=== PATIENT | male | born 1980 | race Caucasian/White ===

== ENCOUNTER 2018-03-12 21:17 | Emergency (ER) | payer OTHER ==
[2018-03-12 21:24] VITALS: BP 106/69; PULSE 68; TEMP 97; BMI 25.7
[2018-03-12] MEDS ORDERED: ACETAMINOPHEN 500 MG TABLET (FP) PO ONE (21:49)
[2018-03-12] MEDS ORDERED: ACETAMINOPHEN 500 MG TABLET (FP) ONE (22:00)
--- NOTE | 2018-03-12 22:44 | PDOC ---
History of Present Illness - General Chief Complaint: Cold Symptoms Stated Complaint: SICK Time Seen by Provider: 03/12/18 21:44 - History of Present Illness Initial Comments: 03/12/18 22:42 37-year-old male with cough fever and body aches 2 days. Past History - Past Medical History Allergies/Adverse Reactions: Allergies Allergy/AdvReac Type Severity Reaction Status Date / Time No Known Allergies Allergy Verified 09/05/17 15:09 Home Medications: Ambulatory Orders Oseltamivir Phosphate [Tamiflu] 75 mg PO BID #10 capsule 03/12/18 COPD: No - Immunization History Immunization Up to Date: Yes - Suicide/Smoking/Psychosocial Hx Smoking History: Never smoked Review of Systems - Review of Systems Constitutional: Yes: Chills, Fever, Night Sweats Respiratory: Yes: Cough *Physical Exam - Vital Signs Last Vital Signs Temp Pulse Resp BP Pulse Ox 97 F L 68 18 106/69 97 03/12/18 21:22 03/12/18 21:22 03/12/18 21:22 03/12/18 21:22 03/12/18 21:22 - Physical Exam Comments: 03/12/18 22:42 HEAD: NC/AT EYES: Conjuntiva clear Ears: Canals and TM's normal NOSE: No d/c THROAT: Moist mucous membrances, oral pharanx clear, uvula midline NECK: Supple without adenopathy CARDIAC: S1 S2 LUNGS: CTA Full and Equal breath sounds ABDOMEN: Soft NT ND MS: Full ROM in all joints without edema NEUROLOGIC: No gross sensory or motor deficits, NVID SKIN: Normal color and temperature no lesions or rashes Moderate Sedation - Procedure Monitoring Vital Signs: Procedure Monitoring Vital Signs Temperature 97 F L 03/12/18 21:22 Pulse Rate 68 03/12/18 21:22 Respiratory Rate 18 03/12/18 21:22 Blood Pressure 106/69 03/12/18 21:22 O2 Sat by Pulse Oximetry (%) 97 03/12/18 21:22 ED Treatment Course - Medications Given in the ED: ED Medications Discontinued Medications Generic Name Dose Route Start Last Admin Trade Name Freq PRN Reason Stop Dose Admin Acetaminophen 1,000 mg 03/12/18 21:49 03/12/18 22:02 Tylenol - PO 03/12/18 21:50 1,000 mg ONCE ONE Administration *DC/Admit/Observation/Transfer Diagnosis at time of Disposition: Influenza A - Discharge Dispostion Disposition: HOME Condition at time of disposition: Stable Decision to Admit order: No - Referrals Referrals: Archana Issa MD [Primary Care Provider] - - Patient Instructions Printed Discharge Instructions: Influenza Additional Instructions: Please take Tamiflu as directed. Return to the emergency room should symptoms worsen or go unresolved. Follow-up with your primary care physician in one to 2 days for further evaluation and treatment options. Tylenol and Motrin as directed for pain. And fever. - Post Discharge Activity
== END 2018-03-12 22:46 | disposition home or self-care (01) ==
LOC: JERFT 21:17
DX: J09.X2 Influenza due to identified novel influenza A virus with other respiratory manifestations (principal)
CPT/HCPCS: 87804; 99281-25

== ENCOUNTER 2019-09-25 20:55 | Emergency (ER) | payer BC, OTHER ==
[2019-09-25 21:07] VITALS: BP 117/70; PULSE 56; TEMP 97.9; BMI 25.7
[2019-09-25] MEDS ORDERED: TETRACAINE 0.5% OPHTH SOLN 2 ML BOTTLE ONE (21:41)
[2019-09-25] MEDS ORDERED: FLUORESCEIN NA 1 EA STRIP ONE (21:41)
[2019-09-25] MEDS ORDERED: DIPHTH,PERTUSS(ACELL),TET 0.5 ML DISP.SYRIN IM ONE ×2 (21:41→22:11)
[2019-09-25] MEDS ORDERED: TETRACAINE 0.5% HCL 0.6ML DROPPER.BOTTLE OU ONE (21:47)
[2019-09-25] MEDS ORDERED: FLUORESCEIN NA 1 EA STRIP OU ONE (21:49)
--- NOTE | 2019-09-25 21:53 | PDOC ---
History of Present Illness - General Chief Complaint: Eye Problem Stated Complaint: INJURY Time Seen by Provider: 09/25/19 21:24 - History of Present Illness Initial Comments: 09/25/19 21:50 39-year-old male without comorbidities presents for evaluation of Right eye irritation x3 days. 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 He also would like his left eye checked however he has no symptoms in his left eye. He has mild tearing in his right eye without visual changes no systemic symptoms. He is not current on his tetanus shot. Past History - Medical History Allergies/Adverse Reactions: Allergies Allergy/AdvReac Type Severity Reaction Status Date / Time No Known Allergies Allergy Verified 09/25/19 21:02 Home Medications: Ambulatory Orders Oseltamivir Phosphate [Tamiflu] 75 mg PO BID #10 capsule 03/12/18 COPD: No - Immunization History Immunization Up to Date: Yes - Psycho-Social/Smoking History Smoking History: Never smoked - Substance Abuse Hx (Audit-C & DAST Scrn) How often the patient has a drink containing alcohol: Never Score: In Men: 4 or > Positive; In Women: 3 or > Positive: 0 Screen Result (Pos requires Nsg. Audit-10AR): Negative Review of Systems - Review of Systems HEENTM: Yes: Eye Pain *Physical Exam - Vital Signs Last Vital Signs Temp Pulse Resp BP Pulse Ox 97.9 F 56 L 18 117/70 97 09/25/19 20:59 09/25/19 20:59 09/25/19 20:59 09/25/19 20:59 09/25/19 20:59 - Physical Exam 09/25/19 21:51 Bilateral eyes were numbed with tetracaine and stained with fluorescein without any indication of foreign body or corneal abrasion. Medical Decision Making - Medical Decision Making 09/25/19 21:51 I will treat this as a corneal abrasion have the patient follow-up with ophthalmology tomorrow without fail Tetanus shot was updated I have reviewed the pathophysiology with the patient. They are in agreement with the treatment plan all questions were answered to their satisfaction. Understanding for follow-up without fail was also conveyed to the patient. Again they are in agreement. Discharge - Discharge Information Problems reviewed: Yes Clinical Impression/Diagnosis: Corneal abrasion Condition: Stable Disposition: HOME - Admission No - Follow up/Referral Referrals: Levi Max MD [Staff Physician] - - Patient Discharge Instructions Additional Instructions: Please use the antibiotic drops as directed and without fail return to the emergency room should symptoms worsen. Without fail follow-up with ophthalmology tomorrow for further evaluation and treatment options. - Post Discharge Activity
== END 2019-09-25 22:13 | disposition home or self-care (01) ==
LOC: JERFT 20:55
PROC: 3E0234Z Introduction of Serum, Toxoid and Vaccine into Muscle, Percutaneous Approach (ICD-10-PCS; principal; 2019-09-25)
DX: S05.01XA Injury of conjunctiva and corneal abrasion without foreign body, right eye, initial encounter (principal)
CPT/HCPCS: 90715; 99284-25